=== PATIENT | male | born 1985 | race African-American/Black ===

== ENCOUNTER 2016-06-09 13:13 | Emergency (ER) | payer SELFPAY | END 2016-06-09 13:48 | disposition home or self-care (01) | LOC: BURERS 13:13 | DX: R42 Dizziness and giddiness (principal) | CPT/HCPCS: 99283 ==

== ENCOUNTER 2016-08-16 06:15 | Emergency (ER) | payer SELFPAY | END 2016-08-16 06:46 | disposition home or self-care (01) | LOC: BURERS 06:15 | DX: G57.93 Unspecified mononeuropathy of bilateral lower limbs (principal) | CPT/HCPCS: 99283 ==

== ENCOUNTER 2016-10-31 09:24 | Emergency (ER) | payer OTHER, SELFPAY ==
[2016-10-31] MEDS ORDERED: Ketorolac Tromethamine 60 MG/2 ML VIAL ONE (09:36)
--- NOTE | 2016-10-31 20:33 | RAD ---
LEFT HAND THREE VIEWS: 10/31/16 No fracture or dislocation was seen. The second MCP joint showed no specific abnormality. The carpal s appear intact. IMPRESSION: No significant findings. POS: HOME
== END 2016-10-31 09:57 | disposition home or self-care (01) ==
LOC: BURERS 09:24
DX: S60.022A Contusion of left index finger without damage to nail, initial encounter (principal); W22.8XXA Striking against or struck by other objects, initial encounter
CPT/HCPCS: 96372; J1885

== ENCOUNTER 2017-01-22 05:49 | Emergency (ER) | payer OTHER ==
[2017-01-22 06:26] LABS: Bilirubin Negative (Negative); Blood, Urine Negative (Negative); Clarity Clear (Clear); Glucose, Urine (Dipstick) Negative (Negative); Leukocyte Negative (Negative); Nitrite Negative (Negative); Protein, Urine (Dipstick) Negative (Neg-Trace); Specific Gravity, Urine 1.015 (1.005-1.030); Urobilinogen 0.2 mg/dL (0.2-1.0); pH, Urine 8.5 (5.0-9.0)
[2017-01-22 06:51] LABS: #Basophils 0.2 thou/uL (0.0-0.2); #Eosinphils 0.1 thou/uL (0.0-0.7); #Monocytes 0.6 thou/uL (0.11-0.59); #Neutrophils 6.7 thou/uL (1.40-6.50); %Basophils 1.6 % (0.0-1.0); %Eosinophils 1.6 % (0.0-10.0); %Lymphocytes 20.4 % (21.0-51.0); %Monocytes 6.5 % (0.0-10.0); Hemoglobin 15.1 g/dL (14.0-18.0); Mean Corpuscular HGB CONC 34.1 g/dL (32.0-36.0); Mean Corpuscular Hemoglobin 29.5 pg (27.0-31.0); Mean Corpuscular Volume 86.5 fl (80.0-94.0); Mean Platelet Volume 8.3 fL (7.4-10.4); Platelet Count 181 thou/uL (130-400); RBC Distribution Width 13.2 % (11.5-14.5); Red Blood Cell (RBC) Count 5.11 mill/uL (4.70-6.10); White Blood Cell (WBC) Count 9.6 thou/uL (4.8-10.8)
[2017-01-22] MEDS ORDERED: Ketorolac Tromethamine 30 MG/ML VIAL ONE (07:05)
[2017-01-22 07:06] LABS: ALT (SGPT) 29 U/L (8-55); AST (SGOT) 32 U/L (5-34); Albumin 3.5 g/dL (3.5-5.0); Alkaline Phosphatase 36 U/L (40-150); Anion Gap 11 mmol/L (10-20); BUN (Urea Nitrogen) 11 mg/dL (8.9-20.6); Bilirubin, Total 1.2 mg/dL (0.2-1.2); Calc. Creatinine Clearance 0 mL/min (70-130); Calcium 8.6 mg/dL (7.8-10.44); Carbon Dioxide 24 mmol/L (22-29); Chloride 109 mmol/L (98-107); Estimated GFR-MDRD Greater than 90; Glucose 87 mg/dL (70-105); Potassium 3.8 mmol/L (3.5-5.1); Protein, Total 5.5 g/dL (6.0-8.3); Sodium 140 mmol/L (136-145)
--- NOTE | 2017-01-22 07:53 | CT ---
PRELIMINARY REPORT/[facility]/EMERGENCY AFTER HOURS PROCEDURE: EXAM: CT Abdomen and Pelvis Without Intravenous Contrast EXAM DATE/TIME: 01/22/2017 6:40 AM CLINICAL HISTORY: 31 years old, male; Pain; Abdominal pain; Flank; Right upper quadrant (ruq); Patient HX: Ruq and rt. Flank pain TECHNIQUE: Axial computed tomography images of the abdomen and pelvis without intravenous contrast. All CT scan s at this facility use one or more dose reduction techniques, viz.: automated exposure control; ma/k V adjustment per patient size (including targeted exams where dose is matched to indication; i.e. he ad); or iterative reconstruction technique. Coronal and sagittal reformatted images were created and reviewed. COMPARISON: No relevant prior studies available. FINDINGS: Lower thorax: No acute findings. ABDOMEN: Liver: Unremarkable. Gallbladder and bile ducts: Unremarkable. No calcified stones. No ductal dilation. Pancreas: Unremarkable. No ductal dilation. Spleen: Unremarkable. No splenomegaly. Adrenals: Unremarkable. No mass. Kidneys and ureters: Unremarkable. No obstructing stones. No hydronephrosis. Stomach and bowel: Unremarkable. No obstruction. No mucosal thickening. Appendix: The appendix is seen and is normal in appearance. PELVIS: Bladder: Unremarkable. No stones. Reproductive: Unremarkable as visualized. ABDOMEN and PELVIS: Intraperitoneal space: Unremarkable. No free air. No significant fluid collection. Bones/joints: No acute fracture. No dislocation. Soft tissues: Unremarkable. Vasculature: Unremarkable. No abdominal aortic aneurysm. Lymph nodes: Unremarkable. No enlarged lymph nodes. IMPRESSION: No definite evidence of acute abdominal or pelvic pathology. Remainder of findings as described stella alvarez. Thank you for allowing us to participate in the care of your patient. Dictated and Authenticated by: Mary Santana MD 01/22/2017 7:11 AM Central Time ([place] \T\ [place]) FINAL REPORT CT ABDOMEN AND PELVIS WITHOUT CONTRAST: DATE: 01/22/17. FINDINGS: Spiral CT of the abdomen and pelvis was done without oral or IV contrast for evaluation of flank mehul n. Axial slices were acquired, then coronal and sagittal reconstructions were done. The lung bases are clear. He liver, spleen, pancreas, gallbladder, adrenal glands, kidneys, and abd ominal aorta were all unremarkable within the limitations of a noncontrast study. No renal calculi or hydronephrosis could be seen. No ureteral calculi were appreciated. The bowel was nonspecific in appearance. It is difficult without any contrast to assess if there is any thickening or not. One would wonder about a little thickening and fluid in the jejunum which i s a nonspecific finding. The thickness of the gastric wall is somewhat prominent, but the stomach i s not distended which could account for this. No free air or free fluid was seen. The appendix cou ld not be identified with certainty, but no inflammatory region were appreciated. CT of the pelvis showed no pelvic masses, fluid collections, or gross inflammatory changes. An inci dental finding of slight anterior wedging of T11 and T12 which is most often physiologic in this age group. IMPRESSION: Study somewhat limited due to lack of contrast; however, there were no specific focal findings to ex plain the patient's symptoms. At most, there may be some minimal thickening of jejunum and fluid fi lling of some of its loops, a very nonspecific finding. POS: HOME
== END 2017-01-22 07:43 | disposition home or self-care (01) ==
LOC: BURERS 05:49
DX: R10.11 Right upper quadrant pain (principal)
CPT/HCPCS: 74176; 80053; 81003; 85025; 96374; J1885

== ENCOUNTER 2017-06-19 08:35 | Emergency (ER) | payer OTHER ==
[2017-06-19 09:35] LABS: Mean Corpuscular HGB CONC 34.7 g/dL (32.0-36.0); Mean Corpuscular Hemoglobin 30.2 pg (27.0-31.0); Mean Corpuscular Volume 86.9 fL (80.0-94.0); Platelet Count 230 thou/uL (130-400); RBC Distribution Width 13.4 % (11.5-14.5); Red Blood Cell (RBC) Count 4.63 mill/uL (4.70-6.10); White Blood Cell (WBC) Count 7.3 thou/uL (4.8-10.8)
[2017-06-19 09:36] LABS: Mean Platelet Volume 8.1 fL (7.4-10.4)
[2017-06-19 09:37] LABS: #Basophils 0.1 thou/uL (0.0-0.2); #Eosinphils 0.1 thou/uL (0.0-0.7); #Monocytes 0.6 thou/uL (0.11-0.59); #Neutrophils 4.5 thou/uL (1.40-6.50); %Basophils 1.5 % (0.0-1.0); %Eosinophils 1.6 % (0.0-10.0); %Lymphocytes 27.2 % (21.0-51.0); %Monocytes 8.7 % (0.0-10.0); %Neutrophils 61.1 % (42.0-75.0)
[2017-06-19 09:39] LABS: ALT (SGPT) 22 U/L (8-55); AST (SGOT) 21 U/L (5-34); Albumin 3.7 g/dL (3.5-5.0); Alkaline Phosphatase 42 U/L (40-150); Anion Gap 10 mmol/L (10-20); BUN (Urea Nitrogen) 11 mg/dL (8.9-20.6); Bilirubin, Total 0.6 mg/dL (0.2-1.2); CK (CPK) 294 U/L (30-200); Calc. Creatinine Clearance 0 mL/min (70-130); Calcium 9.1 mg/dL (7.8-10.44); Carbon Dioxide 31 mmol/L (22-29); Chloride 107 mmol/L (98-107); Estimated GFR-MDRD Greater than 90; Globulin 2.2 g/dL (2.4-3.5); Glucose 91 mg/dL (70-105); Potassium 4.5 mmol/L (3.5-5.1); Protein, Total 5.9 g/dL (6.0-8.3); Sodium 143 mmol/L (136-145)
== END 2017-06-19 09:48 | disposition home or self-care (01) ==
LOC: BURERS 08:35
DX: B34.9 Viral infection, unspecified (principal); F17.210 Nicotine dependence, cigarettes, uncomplicated
CPT/HCPCS: 80053; 82550; 83605; 85025; 96360

== ENCOUNTER 2017-09-03 09:53 | Emergency (ER) | payer OTHER ==
[2017-09-03] MEDS ORDERED: Ketorolac Tromethamine 30 MG/ML VIAL ONE (10:27)
[2017-09-03 10:40] LABS: #Basophils 0.2 thou/uL (0.0-0.2); #Lymphocytes 2.5 thou/uL (1.20-3.40); #Neutrophils 7.9 thou/uL (1.40-6.50); %Basophils 1.5 % (0.0-1.0); %Eosinophils 0.3 % (0.0-10.0); %Lymphocytes 21.6 % (21.0-51.0); %Monocytes 8.6 % (0.0-10.0); Hemoglobin 16.6 g/dL (14.0-18.0); Mean Corpuscular HGB CONC 36.2 g/dL (32.0-36.0); Mean Corpuscular Hemoglobin 29.7 pg (27.0-31.0); Mean Corpuscular Volume 82.1 fl (80.0-94.0); Mean Platelet Volume 8.2 fL (7.4-10.4); Platelet Count 238 thou/uL (130-400); RBC Distribution Width 12.2 % (11.5-14.5); Red Blood Cell (RBC) Count 5.58 mill/uL (4.70-6.10); White Blood Cell (WBC) Count 11.6 thou/uL (4.8-10.8)
[2017-09-03 10:48] LABS: ALT (SGPT) 25 U/L (8-55); AST (SGOT) 28 U/L (5-34); Albumin 4.6 g/dL (3.5-5.0); Alkaline Phosphatase 44 U/L (40-150); Anion Gap 18 mmol/L (10-20); BUN (Urea Nitrogen) 17 mg/dL (8.9-20.6); Bilirubin, Total 1.4 mg/dL (0.2-1.2); CK (CPK) 579 U/L (30-200); Calc. Creatinine Clearance 0 mL/min (70-130); Calcium 10.2 mg/dL (7.8-10.44); Carbon Dioxide 23 mmol/L (22-29); Chloride 101 mmol/L (98-107); Estimated GFR-MDRD 63; Glucose 129 mg/dL (70-105); Lipase 162 U/L (8-78); Potassium 3.3 mmol/L (3.5-5.1); Protein, Total 7.6 g/dL (6.0-8.3); Sodium 139 mmol/L (136-145)
[2017-09-03] MEDS ORDERED: Ondansetron ODT 4 MG TAB ONE (10:50)
[2017-09-03] MEDS ORDERED: Piperacillin/Tazobactam 3.375 GM VIAL ONE (12:07)
[2017-09-03] MEDS ORDERED: Sodium Chloride 0.9% 100 ML ONE (12:07)
[2017-09-03 12:13] LABS: Bilirubin Negative (Negative); Blood, Urine Trace (Negative); Clarity Clear (Clear); Glucose, Urine (Dipstick) Negative (Negative); Leukocyte Negative (Negative); Nitrite Negative (Negative); Protein, Urine (Dipstick) 100 mg/dL (Neg-Trace); Specific Gravity, Urine 1.015 (1.005-1.030); Urobilinogen 0.2 mg/dL (0.2-1.0); pH, Urine 8.5 (5.0-9.0)
[2017-09-03 12:22] LABS: RBC/HPF 0-3 HPF (0-3); Squamous Epithelial 0-3 HPF (0-3); WBC/HPF 0-3 HPF (0-3)
[2017-09-03 12:23] LABS: Bacteria/HPF Rare-Few HPF (None Seen)
--- NOTE | 2017-09-03 21:22 | CT ---
CT ABDOMEN AND PELVIS WITH CONTRAST: 09/03/2017 TECHNIQUE: A spiral CT of the abdomen and pelvis was performed for evaluation of abdominal pain. Axial slices w ere acquired and then coronal and sagittal reconstructions were done. FINDINGS: ABDOMEN: The lung bases are clear. The liver, spleen, pancreas, adrenal glands, kidneys, and abdomi nal aorta appear normal. There appears to be a trace of fluid between the gallbladder and the head o f the pancreas. The gallbladder itself does not contain any observable stones, and the wall is reall y not thick. There is no real stranding around the pancreas, though I understand the lipase is sligh tly elevated. There are a few mildly dilated loops of jejunum with fluid in them, in the upper to mid abdomen. Thi s is probably a focal ileus. There is no sign of reyna obstruction. No free air is seen. PELVIS: No pelvic masses, fluid collections, or inflammatory changes in this region. There is some mild concentric thickening of the gastric wall, but it is not completely distended, whi ch may be part of the explanation for such. IMPRESSION: Probably a small amount of fluid between the gallbladder and the head of the pancreas without any oth er focal findings. Probable nearby reactive ileus. Correlate with clinical examination and laborato ry data, particularly regarding the pancreas. POS: HOME
== END 2017-09-03 13:20 | disposition short-term general hospital (02) ==
LOC: BURERS 09:53
DX: R10.13 Epigastric pain (principal); F17.210 Nicotine dependence, cigarettes, uncomplicated
CPT/HCPCS: 74177; 80053; 81003; 81015; 82550; 83690; 85025; 93005; 96361; 96365; 96375; J1885; J2270; J2543; J7050; Q0162

== ENCOUNTER 2018-06-24 05:21 | Emergency (ER) | payer OTHER, SELFPAY | END 2018-06-24 05:55 | disposition home or self-care (01) | LOC: BURERS 05:21 | DX: D17.5 Benign lipomatous neoplasm of intra-abdominal organs (principal); F17.210 Nicotine dependence, cigarettes, uncomplicated | CPT/HCPCS: 99282 ==

== ENCOUNTER 2020-03-25 15:30 | Emergency (ER) | payer OTHER, SELFPAY ==
[2020-03-26 03:08] LABS: SARS-CoV-2 MS2 Positive; SARS-CoV-2 N Gene Negative; SARS-CoV-2 S Gene Negative; SARS-CoV-2 by NAA Not Detected (NotDetected); SARS-CoV-2 orf1ab Negative
== END 2020-03-25 16:20 | disposition home or self-care (01) ==
LOC: BURERS 15:30
DX: B34.9 Viral infection, unspecified (principal); Z20.828 Contact with and (suspected) exposure to other viral communicable diseases; F17.210 Nicotine dependence, cigarettes, uncomplicated
CPT/HCPCS: 87635; 99284; U0003

== ENCOUNTER 2020-06-24 21:59 | Emergency (ER) | payer OTHER, SELFPAY | END 2020-06-24 22:27 | disposition home or self-care (01) | LOC: BURERS 21:59 | DX: T16.1XXA Foreign body in right ear, initial encounter (principal); F17.210 Nicotine dependence, cigarettes, uncomplicated | CPT/HCPCS: 69200; 99406 ==

== ENCOUNTER 2020-11-06 18:06 | Emergency (ER) | payer SELFPAY ==
[2020-11-06] MEDS ORDERED: Lidocaine 1% PF 5 ML VIAL ONE (18:45)
[2020-11-06] MEDS ORDERED: Sulfameth/Trimethoprim DS 800-160mg TAB ONE (19:09)
== END 2020-11-06 19:11 | disposition home or self-care (01) ==
LOC: BURERS 18:06
DX: L03.012 Cellulitis of left finger (principal); F17.210 Nicotine dependence, cigarettes, uncomplicated
CPT/HCPCS: 10060

== ENCOUNTER 2021-01-06 12:48 | Emergency (ER) | payer SELFPAY ==
[2021-01-07 00:35] LABS: SARS-CoV-2 PCR by NAA Not Detected (NotDetected)
== END 2021-01-06 13:12 | disposition home or self-care (01) ==
LOC: BURERS 12:48
DX: R53.83 Other fatigue (principal); R05 Cough; Z20.822 Contact with and (suspected) exposure to COVID-19; F17.210 Nicotine dependence, cigarettes, uncomplicated
CPT/HCPCS: 99283; U0003; U0005

== ENCOUNTER 2021-05-18 13:17 | Emergency (ER) | payer SELFPAY | END 2021-05-18 13:38 | disposition home or self-care (01) | LOC: BURERS 13:17 | DX: S46.011A Strain of muscle(s) and tendon(s) of the rotator cuff of right shoulder, initial encounter (principal); X50.9XXA Other and unspecified overexertion or strenuous movements or postures, initial encounter; Y99.0 Civilian activity done for income or pay; F17.210 Nicotine dependence, cigarettes, uncomplicated | CPT/HCPCS: 99283 ==

== ENCOUNTER 2021-12-11 13:37 | Emergency (ER) | payer BC, SELFPAY ==
[2021-12-11] MEDS ORDERED: Sterile Water 10 ML ONE (14:14)
[2021-12-11] MEDS ORDERED: CEFAZOLIN 1 GM VIAL ONE (14:14)
[2021-12-11] MEDS ORDERED: Bacitracin 1 PK ONE (14:14)
[2021-12-11] MEDS ORDERED: Boostrix 0.5 ML (Tdap) VIAL ONE (14:14)
== END 2021-12-11 14:44 | disposition home or self-care (01) ==
LOC: BURERS 13:37
DX: S61.432A Puncture wound without foreign body of left hand, initial encounter (principal); F17.210 Nicotine dependence, cigarettes, uncomplicated; W34.00XA Accidental discharge from unspecified firearms or gun, initial encounter
CPT/HCPCS: 90471; 90715; 96372; J0690

== ENCOUNTER 2022-01-24 17:23 | Emergency (ER) | payer BC | END 2022-01-24 18:40 | disposition left against medical advice (07) | LOC: BURERS 17:23 | DX: M25.552 Pain in left hip (principal); F17.210 Nicotine dependence, cigarettes, uncomplicated ==

== ENCOUNTER 2022-05-04 04:36 | Emergency (ER) | payer BC ==
[2022-05-04] MEDS ORDERED: Acetaminophen 325 MG TAB ONE (05:00)
== END 2022-05-04 05:08 | disposition home or self-care (01) ==
LOC: BURERS 04:36
DX: B34.9 Viral infection, unspecified (principal); Z20.822 Contact with and (suspected) exposure to COVID-19
CPT/HCPCS: 99284; U0003; U0005

== ENCOUNTER 2024-03-13 13:07 | Emergency (ER) | payer BC, OTHER | END 2024-03-13 14:00 | disposition home or self-care (01) | LOC: BURERS 13:07 | DX: S40.012A Contusion of left shoulder, initial encounter (principal); S80.01XA Contusion of right knee, initial encounter; F17.290 Nicotine dependence, other tobacco product, uncomplicated; V89.2XXA Person injured in unspecified motor-vehicle accident, traffic, initial encounter; Y93.89 Activity, other specified; Y92.410 Unspecified street and highway as the place of occurrence of the external cause | CPT/HCPCS: 99283 ==